=== PATIENT | male | born 1995 | race Hispanic/Latino ===

== ENCOUNTER 2017-10-26 14:04 | Emergency (ER) | payer OTHER ==
[~2017-10-26] VITALS: Ht 188 cm; Wt 116.6 kg
[2017-10-26 15:20] VITALS: BP 159/67
== END 2017-10-26 15:24 | disposition home or self-care (01) ==
LOC: ER 14:04
DX: S50.871A Other superficial bite of right forearm, initial encounter (principal); W55.81XA Bitten by other mammals, initial encounter; Y92.008 Other place in unspecified non-institutional (private) residence as the place of occurrence of the external cause
CPT/HCPCS: 99283